=== PATIENT | female | born 1945 | race African-American/Black ===

== ENCOUNTER 2017-06-19 11:38 | Emergency (ER) | payer MEDICARE, OTHER ==
[~2017-06-19] VITALS: Ht 175.3 cm; Wt 68.0 kg
[2017-06-19 12:20] VITALS: BP 129/78
== END 2017-06-19 13:10 | disposition home or self-care (01) ==
LOC: ER 11:38
DX: K04.7 Periapical abscess without sinus (principal); E11.9 Type 2 diabetes mellitus without complications